=== PATIENT | female | born 2000 | race Caucasian/White ===

== ENCOUNTER 2023-09-11 15:06 | Emergency (ER) | payer OTHER, SELFPAY ==
[2023-09-11 15:37] VITALS: BP 130/81; PULSE 88; RESP 15; TEMP 36.5; O2SAT 97
--- NOTE | 2023-09-11 16:06 | ED.ABDPAIN ---
HPI - Abdominal Pain General Chief Complaint: Abdominal Pain Stated Complaint: abd pain, nausea Time Seen by Provider: 09/11/23 15:55 Focused HPI: This is a 23-year-old female who presents to the ED with chief complaint of right lower abdominal pain x1 day. 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 States that the pain radiates from right side of the abdomen into the right lower back. Denies any specific injury. She thought maybe was a UTI so she started taking azo. She went to urgent care who referred her here for further evaluation. Denies dysuria, hematuria, fevers, chills, nausea, vomiting, diarrhea, chest pain, shortness of breath. GENERAL: Well-appearing, well-nourished, and in no acute distress. HEAD: Normocephalic, atraumatic. CHEST: Clear to auscultation. No respiratory distress. HEART: Regular rate and rhythm. ABD: Minimal abdominal tenderness. Minimal flank tenderness. No abdominal distension NEURO: Alert and oriented x3. Patient screened in triage and initial orders placed. Additional care and disposition to be based upon diagnostic testing and treatment. Source: patient Mode of arrival: ambulatory Limitations: no limitations Related Data Allergies Allergy/AdvReac Type Severity Reaction Status Date / Time AMOXICILLIN TRIHYDRATE Allergy Mild HIVES Uncoded 09/11/23 15:40 Cat Dander Allergy Mild ITCHING Uncoded 09/11/23 15:40 Cultivated Oat Pollen Allergy Mild NASAL Uncoded 09/11/23 15:40 REACTION POTASSIUM CLAVULANATE Allergy Mild HIVES Uncoded 09/11/23 15:40 Review of Systems Review of Systems: All systems as dictated in HPI Exam Narrative: GENERAL: Well-appearing, well-nourished, and in no acute distress. HEAD: Normocephalic, atraumatic. EYES: PERRLA and EOMI. ENT: Nares clear, no rhinorrhea or epistaxis. Mucous membranes moist. Oropharynx without tonsillar hypertrophy exudate or other lesions. NECK: Supple. No adenopathy or masses. CHEST: No respiratory distress. Clear to auscultation. No wheezes rales or rhonchi HEART: Regular rate and rhythm. No murmur heard. Normal peripheral pulses. ABDOMEN: Soft, nontender, nondistended, normal active bowel sounds. MSK: Normal range of motion. No edema. SKIN: Warm, dry, no rash. NEURO: Alert and oriented x4. No focal deficits. PSYCH: Normal mood and affect. Course Vital Signs Vital signs: Vital Signs Temperature 97.7 F 09/11/23 15:37 Pulse Rate 88 09/11/23 15:37 Respiratory Rate 15 09/11/23 15:37 Blood Pressure 130/81 09/11/23 15:37 Pulse Oximetry 97 09/11/23 15:37 Oxygen Delivery Room Air 09/11/23 15:37 Temperature 97.7 F 09/11/23 15:37 Pulse Rate 88 09/11/23 15:37 Respiratory Rate 15 09/11/23 15:37 Blood Pressure 130/81 09/11/23 15:37 Pulse Oximetry 97 09/11/23 15:37 Oxygen Delivery Room Air 09/11/23 15:37 MDM - Abdominal Pain MDM Narrative Medical decision making narrative: This is a 23-year-old female who presents to the ED with chief complaint of right lower abdominal pain radiating to the right flank. Vitals are normal. Exam remarkable for the above but no significant abdominal tenderness noted. Lab work is largely unremarkable. No leukocytosis. UA is positive for nitrites, leuk esterase. Rx for cephalexin given. Patient has troubles with yeast infections, will also give 1 time dose of fluconazole. Pt will be discharged in stable condition. Return precautions given and supportive measures discussed. Pt is understanding and agreeable with plan for discharge and follow-up with PCP. Lab Data 09/11/23 16:17 09/11/23 16:17 Labs: Lab Results 09/11/23 Range/Units 16:17 WBC 9.5 (4.5-10.0) K/mm3 RBC 4.26 (4.2-5.4) M/mm3 Hgb 14.3 (12.0-15.0) g/dL Hct 41.4 (37.0-47.0) % MCV 97.2 (80-100) fl MCH 33.6 (26-34) pg MCHC 34.5 (32-36) g/dl RDW 11
[2023-09-11 16:24] LABS: Basophils Percent Auto 0.3 % (0.2-1.2); Eosinophils Absolute Auto 0.4 K/mm3 (0-0.3); Eosinophils Percent Auto 3.9 % (0-4.4); Hematocrit 41.4 % (37.0-47.0); Hemoglobin 14.3 g/dL (12.0-15.0); Immature Granulocyte Absolute 0.03 K/mm3 (0.00-0.031); Immature Granulocyte Percent A 0.3 % (0-0.5); Lymphocytes Absolute Auto 1.95 K/mm3 (0.9-3.2); Lymphocytes Percent Auto 20.6 % (18.3-44.2); Mean Corpuscular HGB Conc 34.5 g/dl (32-36); Mean Corpuscular Hemoglobin 33.6 pg (26-34); Mean Corpuscular Volume 97.2 fl (80-100); Mean Platelet Volume 11.5 fl (7.4-10.4); Monocytes Absolute Auto 0.5 K/mm3 (0.1-0.6); Monocytes Percent Auto 4.8 % (2.6-8.5); Neutrophils Absolute Auto 6.6 K/mm3 (1.3-6.7); Neutrophils Percent Auto 70.1 % (45.5-73.1); Platelet Count Result 204 k/mm3 (150-375); Red Blood Count 4.26 M/mm3 (4.2-5.4); Red Cell Distribution Width 11.3 % (11.5-14.5); White Blood Count 9.5 K/mm3 (4.5-10.0)
[2023-09-11 16:38] LABS: Alanine Aminotransferase 16 U/L (6-35); Albumin Level 5.1 g/dL (3.5-5.1); Alkaline Phosphatase 46 U/L (38-126); Anion Gap 10 mmol/L (4-12); Appearance Urine Cloudy (Clear); Aspartate Amino Transferase 23 U/L (14-36); Bacteria Urine None Seen /hpf; Bilirubin Urine 2+ (Negative); Bilirubin,Total 1.1 mg/dL (0.2-1.3); Blood Urea Nitrogen 9 mg/dL (7-17); Blood Urine Negative (Negative); Calcium 9.8 mg/dL (8.4-10.2); Carbon Dioxide 27 mmol/L (22-30); Chloride 102 mmol/L (98-107); Estimated CRCL calculation 146 ml/min; Estimated Glomerular Filt Rate > 60; Glucose 81 mg/dL (65-110); Glucose Urine UA Negative (Negative); Ketones Urine Negative (Negative); Leukocyte Esterase Ur 2+ LEU/UL (Negative); Lipase 34 U/L (23-300); Need Manual Microscopic Reviewed; Nitrate Urine Positive (Negative); Non Pathogenic Casts 0-2; Protein Urine 1+ mg/dL (Negative); Sodium 139 mmol/L (137-145); Specific Grav Ur 1.025 (1.001-1.035); Squamous Epithelial Cell Urine Moderate /hpf (Few); WBC Urine 0-5 /hpf (0-3)
[2023-09-11 16:39] LABS: Color Urine Orange (Yellow)
[2023-09-11 16:40] LABS: Add Urine Microscopic? YES
== END 2023-09-11 17:13 | disposition home or self-care (01) ==
PROVIDERS: Emergency Provider Physician Assistant
DX: N39.0 Urinary tract infection, site not specified (principal)
CPT/HCPCS: 36415; 80053; 81001; 81025; 83690; 85025; 99283